=== PATIENT | male | born 1975 | race Two or more races ===

== ENCOUNTER 2023-09-12 07:15 | Outpatient (CLI) | payer OTHER | END 2023-09-12 07:20 | disposition home or self-care (01) | LOC: NUCLEAR 07:15 | PROVIDERS: ATTEND Internal Medicine | DX: C50.422 Malignant neoplasm of upper-outer quadrant of left male breast (principal); C77.3 Secondary and unspecified malignant neoplasm of axilla and upper limb lymph nodes ==